=== PATIENT | female | born 1955 | race Hispanic/Latino ===

== ENCOUNTER 2018-03-10 21:29 | Inpatient (IN) | payer OTHER ==
[~2018-03-10] VITALS: Ht 160 cm; Wt 99.5 kg
[2018-03-10] MEDS ORDERED: ACETAMINOPHEN-CODEINE 300/30MG TAB ONE (22:34)
[2018-03-10 22:53] LABS: BASOPHILS % (AUTO) 0.4 % (0.0-5.0); EOSINOPHILS % (AUTO) 0.4 % (0.0-8.0); HEMATOCRIT 40.4 % (36-48); LYMPHOCYTES % (AUTO) 11.9 % (21.0-51.0); MEAN CORPUSCULAR HEMOGLOBIN 30.1 pg (27.0-33.0); MEAN CORPUSCULAR HGB CONC 34.6 g/dL (32.0-36.0); MONOCYTES % (AUTO) 8.4 % (3.0-13.0); NEUTROPHILS % (AUTO) 78.9 % (40.0-77.0); PLATELET COUNT (AUTO) 330 K/uL (130-400); RED BLOOD CELL COUNT(AUTO) 4.65 MIL/uL (4.00-5.50); RED CELL DISTRIBUTION WIDTH 14.6 % (11.0-15.5); WHITE BLOOD COUNT (AUTO) 10.7 K/uL (4.8-10.8)
[2018-03-10 23:08] LABS: CREATININE 0.7 mg/dL (0.5-1.5); POTASSIUM 3.6 mmol/L (3.5-5.1)
[2018-03-10 23:12] LABS: ALBUMIN 3.6 g/dL (3.5-5.0); BILIRUBIN,TOTAL 0.3 mg/dL (0.2-1.0); TOTAL PROTEIN, SERUM 7.5 g/dL (6.0-8.3)
[2018-03-10 23:29] LABS: APPEARANCE,URINE Turbid (CLEAR); BILIRUBIN,URINE Negative (NEGATIVE); COLOR,URINE Yellow (YELLOW); GLUCOSE, URINE (UA) Negative (NEGATIVE); KETONES,URINE Negative (NEGATIVE); LEUKOCYTE ESTERASE ,URINE Moderate (NEGATIVE); NITRATE,URINE Negative (NEGATIVE); OCCULT BLOOD,URINE Negative (NEGATIVE); PH,URINE 7.5 (5.0-8.0); PROTEIN,URINE Negative (NEGATIVE)
[2018-03-10 23:40] LABS: AMORPHOUS SEDIMENT,UR Many /LPF (None Seen); BACTERIA,URINE Few /HPF (None Seen); MUCUS,URINE Moderate LPF (None Seen); RBC,URINE None Seen /HPF (0-1); SQUAMOUS EPITHELIAL CELL,UR Few /HPF (0-2)
[2018-03-11] VITALS (7 sets, daily range): BP systolic 127–183; BP diastolic 65–86
[2018-03-11] MEDS ORDERED: SODIUM CHLORIDE 0.9% 1000ML 1,000 ML IV SCH (01:32)
[2018-03-11] MEDS ORDERED: ONDANSETRON HCL 4 MG/2 ML VIAL IV PRN (01:45)
[2018-03-11] MEDS ORDERED: ACETAMINOPHEN 325 MG TAB PO PRN (01:45)
[2018-03-11] MEDS ORDERED: DEXTROSE 50%-WATER 50 ML DISP.SYRIN IV PRN (01:45)
[2018-03-11] MEDS ORDERED: GLUCAGON 1MG KIT 1 MG ML IM PRN (01:45)
[2018-03-11] MEDS ORDERED: LEVOFLOXACIN 500 MG/D5W 100 ML 100 ML ONE (03:44)
[2018-03-11] MEDS ORDERED: SODIUM CHLORIDE 0.9% 1000ML 1,000 ML IV ONE (03:44)
[2018-03-11] MEDS ORDERED: HYDROCODONE/ACETAMINOPHEN 5/325 MG TAB ONE (04:48)
[2018-03-11] MEDS ORDERED: DIAZ2TAB3 PO (05:26)
[2018-03-11] MEDS ORDERED: ATOR10 PO (05:26)
[2018-03-11] MEDS ORDERED: AMLO5TAB7 PO (05:26)
[2018-03-11] MEDS ORDERED: LOSA50TA25 PO (05:26)
[2018-03-11] MEDS ORDERED: ATEN100T PO (05:26)
[2018-03-11] MEDS ORDERED: CLON0.3T PO (05:26)
[2018-03-11] MEDS ORDERED: HYDR25TA PO (05:26)
[2018-03-11] MEDS ORDERED: diclofenac gel TP (05:26)
[2018-03-11] MEDS ORDERED: INSU100I21 SQ ×2 (05:26→12:35)
[2018-03-11] MEDS ORDERED: INSU100I3 SQ (05:26)
[2018-03-11] MEDS ORDERED: ASPI-555 PO (05:26)
[2018-03-11] MEDS ORDERED: HYDR-4154 PO (05:26)
[2018-03-11] MEDS ORDERED: GLYB-228 PO (05:26)
[2018-03-11 06:54] LABS: BASOPHILS % (AUTO) 0.3 % (0.0-5.0); EOSINOPHILS % (AUTO) 0.3 % (0.0-8.0); HEMATOCRIT 40.4 % (36-48); LYMPHOCYTES % (AUTO) 12.2 % (21.0-51.0); MEAN CORPUSCULAR HEMOGLOBIN 28.4 pg (27.0-33.0); MEAN CORPUSCULAR VOLUME 86.1 fL (79-99); MONOCYTES % (AUTO) 9.6 % (3.0-13.0); NEUTROPHILS % (AUTO) 77.6 % (40.0-77.0); PLATELET COUNT (AUTO) 313 K/uL (130-400); RED CELL DISTRIBUTION WIDTH 14.9 % (11.0-15.5); WHITE BLOOD COUNT (AUTO) 11.4 K/uL (4.8-10.8)
[2018-03-11 07:00] LABS: INR 0.96 (0.85-1.15); PARTIAL THROMBOPLASTIN TIME 29.1 SEC (26.3-35.5); PROTHROMBIN TIME 10.1 SEC (9.6-11.6)
[2018-03-11 07:01] LABS: HEMOGLOBIN A1C 7.1 % (4.0-6.0)
[2018-03-11 07:03] LABS: ALBUMIN 3.6 g/dL (3.5-5.0); BILIRUBIN,TOTAL 0.4 mg/dL (0.2-1.0); CREATININE 0.7 mg/dL (0.5-1.5); POTASSIUM 3.9 mmol/L (3.5-5.1); TOTAL PROTEIN, SERUM 7.4 g/dL (6.0-8.3)
[2018-03-11] MEDS: INSULIN HUMULIN R 100 UNIT/ML 3ML SQ SCH ×4 (07:30→21:00)
[2018-03-11] MEDS ORDERED: INSULIN LISPRO 100 UNIT/ML 3ML SQ PRN (09:00)
[2018-03-11] MEDS ORDERED: HYDROCHLOROTHIAZIDE 25 MG TABLET PO PRN (09:00)
[2018-03-11] MEDS ORDERED: AMLODIPINE BESYLATE 5 MG TAB PO SCH (09:00)
[2018-03-11] MEDS: ENOXAPARIN SODIUM 40 MG/0.4 ML SYRINGE SQ SCH (10:03)
[2018-03-11] MEDS: DIAZEPAM 2 MG TAB PO SCH ×2 (10:04→21:33)
[2018-03-11] MEDS: ASPIRIN 81MG TAB.CHEW PO SCH (10:05)
[2018-03-11] MEDS: PANTOPRAZOLE SODIUM 40 MG TABLET.DR PO SCH (10:05)
[2018-03-11] MEDS: ATENOLOL 50 MG TABLET PO SCH (10:06)
[2018-03-11] MEDS: GLYBURIDE/METFORMIN HCL 5/500MG TABLET PO SCH ×2 (10:07→21:35)
[2018-03-11] MEDS: LOSARTAN 50 MG TABLET PO SCH (10:07)
[2018-03-11] MEDS: CLONIDINE HCL 0.3 MG TABLET PO SCH ×3 (10:07→21:33)
[2018-03-11] MEDS: HYDRALAZINE HCL 25 MG TABLET PO PRN (11:00)
[2018-03-11] MEDS: HYDROCODONE/ACETAMINOPHEN 5/325 MG TAB PO PRN ×2 (11:03→20:14)
[2018-03-11] MEDS ORDERED: INSULIN GLARGINE 100 UNITS/ML 10 ML VIAL SQ SCH (12:00)
[2018-03-11] MEDS: APPL TP SCH ×2 (12:37→21:00)
[2018-03-11] MEDS: LACTULOSE 20 GM/30 ML UDCUP PO PRN (20:14)
[2018-03-11] MEDS: LEVOFLOXACIN 500 MG/D5W 100 ML 100 ML IV SCH (21:32)
[2018-03-11] MEDS: ATORVASTATIN CALCIUM 10 MG TABLET PO SCH (21:33)
[2018-03-12 03:00] VITALS: BP 150/60
[2018-03-12 05:37] LABS: HEMATOCRIT 40.9 % (36-48); MEAN CORPUSCULAR HEMOGLOBIN 29.7 pg (27.0-33.0); MEAN CORPUSCULAR VOLUME 87.4 fL (79-99); PLATELET COUNT (AUTO) 331 K/uL (130-400); RED BLOOD CELL COUNT(AUTO) 4.68 MIL/uL (4.00-5.50); RED CELL DISTRIBUTION WIDTH 14.5 % (11.0-15.5); WHITE BLOOD COUNT (AUTO) 10.8 K/uL (4.8-10.8)
[2018-03-12] MEDS: HYDROCODONE/ACETAMINOPHEN 5/325 MG TAB PO PRN ×3 (05:44→19:28)
[2018-03-12] MEDS: INSULIN HUMULIN R 100 UNIT/ML 3ML SQ SCH ×4 (05:45→20:00)
[2018-03-12 05:50] LABS: ALBUMIN 3.5 g/dL (3.5-5.0); BILIRUBIN,TOTAL 0.5 mg/dL (0.2-1.0); CREATININE 0.9 mg/dL (0.5-1.5); POTASSIUM 3.7 mmol/L (3.5-5.1); TOTAL PROTEIN, SERUM 7.5 g/dL (6.0-8.3)
[2018-03-12 08:27] VITALS: BP 165/75
[2018-03-12] MEDS: APPL TP SCH ×3 (09:00→21:00)
[2018-03-12] MEDS: DIAZEPAM 2 MG TAB PO SCH ×2 (09:00→20:26)
[2018-03-12] MEDS: ENOXAPARIN SODIUM 40 MG/0.4 ML SYRINGE SQ SCH (10:43)
[2018-03-12] MEDS: GLYBURIDE/METFORMIN HCL 5/500MG TABLET PO SCH ×2 (10:43→20:24)
[2018-03-12] MEDS: ATENOLOL 50 MG TABLET PO SCH (10:44)
[2018-03-12] MEDS: ASPIRIN 81MG TAB.CHEW PO SCH (10:45)
[2018-03-12] MEDS: PANTOPRAZOLE SODIUM 40 MG TABLET.DR PO SCH (10:45)
[2018-03-12] MEDS: LOSARTAN 50 MG TABLET PO SCH (10:45)
[2018-03-12] MEDS: CLONIDINE HCL 0.3 MG TABLET PO SCH ×2 (10:50→19:24)
[2018-03-12 12:00] VITALS: BP 161/75
[2018-03-12] MEDS ORDERED: INSULIN GLARGINE 100 UNITS/ML 10 ML VIAL SQ SCH (12:00)
[2018-03-12 16:00] VITALS: BP 160/71
[2018-03-12 19:00] VITALS: BP 171/78
[2018-03-12] MEDS: LEVOFLOXACIN 500 MG/D5W 100 ML 100 ML IV SCH (20:23)
[2018-03-12] MEDS: ATORVASTATIN CALCIUM 10 MG TABLET PO SCH (20:24)
[2018-03-12 23:00] VITALS: BP 163/76
[2018-03-13] MEDS: HYDROCODONE/ACETAMINOPHEN 5/325 MG TAB PO PRN ×3 (01:34→19:42)
[2018-03-13 03:00] VITALS: BP 176/67
[2018-03-13] MEDS: HYDRALAZINE HCL 25 MG TABLET PO PRN (04:21)
[2018-03-13] MEDS: INSULIN HUMULIN R 100 UNIT/ML 3ML SQ SCH ×4 (05:33→20:45)
[2018-03-13 06:02] LABS: HEMATOCRIT 41.1 % (36-48); MEAN CORPUSCULAR HEMOGLOBIN 29.5 pg (27.0-33.0); MEAN CORPUSCULAR HGB CONC 34.2 g/dL (32.0-36.0); MEAN CORPUSCULAR VOLUME 86.3 fL (79-99); PLATELET COUNT (AUTO) 365 K/uL (130-400); RED BLOOD CELL COUNT(AUTO) 4.76 MIL/uL (4.00-5.50); RED CELL DISTRIBUTION WIDTH 14.3 % (11.0-15.5); WHITE BLOOD COUNT (AUTO) 12.3 K/uL (4.8-10.8)
[2018-03-13 06:21] LABS: ALBUMIN 3.6 g/dL (3.5-5.0); BILIRUBIN,TOTAL 0.4 mg/dL (0.2-1.0); CREATININE 0.8 mg/dL (0.5-1.5); POTASSIUM 3.9 mmol/L (3.5-5.1); TOTAL PROTEIN, SERUM 7.5 g/dL (6.0-8.3)
[2018-03-13 07:00] VITALS: BP 178/61
[2018-03-13] MEDS: DIAZEPAM 2 MG TAB PO SCH ×2 (08:28→20:47)
[2018-03-13] MEDS: GLYBURIDE/METFORMIN HCL 5/500MG TABLET PO SCH ×3 (08:28→20:48)
[2018-03-13] MEDS: PANTOPRAZOLE SODIUM 40 MG TABLET.DR PO SCH (08:28)
[2018-03-13] MEDS: AMLODIPINE BESYLATE 5 MG TAB PO SCH (08:28)
[2018-03-13] MEDS: ASPIRIN 81MG TAB.CHEW PO SCH (08:29)
[2018-03-13] MEDS: ATENOLOL 50 MG TABLET PO SCH (08:29)
[2018-03-13] MEDS: LOSARTAN 50 MG TABLET PO SCH ×2 (08:29→11:42)
[2018-03-13] MEDS: CLONIDINE HCL 0.3 MG TABLET PO SCH ×4 (08:30→20:48)
[2018-03-13] MEDS: ENOXAPARIN SODIUM 40 MG/0.4 ML SYRINGE SQ SCH (08:31)
[2018-03-13] MEDS: APPL TP SCH ×3 (08:48→20:51)
[2018-03-13 11:00] VITALS: BP 163/55
[2018-03-13] MEDS: INSULIN GLARGINE 100 UNITS/ML 10 ML VIAL SQ SCH (11:49)
[2018-03-13] MEDS ORDERED: CEFTRIAXONE SODIUM 1 GM IV SCH (12:00)
[2018-03-13] MEDS: CEFTRIAXONE SODIUM 1 GM IV SCH (13:13)
[2018-03-13 16:00] VITALS: BP 127/58
[2018-03-13 19:00] VITALS: BP 147/71
[2018-03-13] MEDS: ATORVASTATIN CALCIUM 10 MG TABLET PO SCH (20:47)
[2018-03-13 23:00] VITALS: BP 122/57
[2018-03-14] MEDS: HYDROCODONE/ACETAMINOPHEN 5/325 MG TAB PO PRN ×6 (02:51→22:23)
[2018-03-14 03:00] VITALS: BP 141/72
[2018-03-14 05:29] LABS: HEMATOCRIT 37.6 % (36-48); MEAN CORPUSCULAR HEMOGLOBIN 28.9 pg (27.0-33.0); MEAN CORPUSCULAR HGB CONC 32.9 g/dL (32.0-36.0); MEAN CORPUSCULAR VOLUME 87.8 fL (79-99); PLATELET COUNT (AUTO) 273 K/uL (130-400); RED BLOOD CELL COUNT(AUTO) 4.28 MIL/uL (4.00-5.50); RED CELL DISTRIBUTION WIDTH 14.6 % (11.0-15.5); WHITE BLOOD COUNT (AUTO) 9.8 K/uL (4.8-10.8)
[2018-03-14 05:36] LABS: CREATININE 0.8 mg/dL (0.5-1.5); POTASSIUM 3.8 mmol/L (3.5-5.1)
[2018-03-14] MEDS: INSULIN HUMULIN R 100 UNIT/ML 3ML SQ SCH ×4 (06:40→20:10)
[2018-03-14 07:00] VITALS: BP 161/76
[2018-03-14] MEDS: PANTOPRAZOLE SODIUM 40 MG TABLET.DR PO SCH (08:49)
[2018-03-14] MEDS: ATENOLOL 50 MG TABLET PO SCH (08:50)
[2018-03-14] MEDS: LOSARTAN 50 MG TABLET PO SCH (08:51)
[2018-03-14] MEDS: AMLODIPINE BESYLATE 5 MG TAB PO SCH (08:51)
[2018-03-14] MEDS: ASPIRIN 81MG TAB.CHEW PO SCH (08:51)
[2018-03-14] MEDS: DIAZEPAM 2 MG TAB PO SCH ×2 (08:51→20:13)
[2018-03-14] MEDS: CLONIDINE HCL 0.3 MG TABLET PO SCH ×3 (08:52→20:14)
[2018-03-14] MEDS: GLYBURIDE/METFORMIN HCL 5/500MG TABLET PO SCH ×2 (08:52→20:14)
[2018-03-14] MEDS: ENOXAPARIN SODIUM 40 MG/0.4 ML SYRINGE SQ SCH (08:53)
[2018-03-14] MEDS: APPL TP SCH ×3 (08:53→20:15)
[2018-03-14 11:00] VITALS: BP 127/61
[2018-03-14] MEDS: CEFTRIAXONE SODIUM 1 GM IV SCH (12:36)
[2018-03-14] MEDS: INSULIN GLARGINE 100 UNITS/ML 10 ML VIAL SQ SCH (12:40)
[2018-03-14 16:00] VITALS: BP 156/52
[2018-03-14 19:00] VITALS: BP 141/74
[2018-03-14] MEDS: ATORVASTATIN CALCIUM 10 MG TABLET PO SCH (20:13)
[2018-03-15] VITALS: BP 136/64
[2018-03-15 04:00] VITALS: BP 137/67
[2018-03-15] MEDS: HYDROCODONE/ACETAMINOPHEN 5/325 MG TAB PO PRN ×4 (04:22→22:29)
[2018-03-15 04:44] LABS: HEMATOCRIT 37.5 % (36-48); MEAN CORPUSCULAR HEMOGLOBIN 29.5 pg (27.0-33.0); MEAN CORPUSCULAR HGB CONC 33.8 g/dL (32.0-36.0); MEAN CORPUSCULAR VOLUME 87.2 fL (79-99); PLATELET COUNT (AUTO) 319 K/uL (130-400); RED CELL DISTRIBUTION WIDTH 14.5 % (11.0-15.5); WHITE BLOOD COUNT (AUTO) 14.1 K/uL (4.8-10.8)
[2018-03-15 05:05] LABS: CREATININE 0.8 mg/dL (0.5-1.5); POTASSIUM 3.8 mmol/L (3.5-5.1)
[2018-03-15 07:00] VITALS: BP 148/66
[2018-03-15] MEDS: INSULIN HUMULIN R 100 UNIT/ML 3ML SQ SCH ×4 (07:30→20:24)
[2018-03-15] MEDS: APPL TP SCH ×3 (09:00→20:25)
[2018-03-15] MEDS: LOSARTAN 50 MG TABLET PO SCH (09:10)
[2018-03-15] MEDS: GLYBURIDE/METFORMIN HCL 5/500MG TABLET PO SCH ×2 (09:11→20:23)
[2018-03-15] MEDS: PANTOPRAZOLE SODIUM 40 MG TABLET.DR PO SCH (09:12)
[2018-03-15] MEDS: ASPIRIN 81MG TAB.CHEW PO SCH (09:12)
[2018-03-15] MEDS: ATENOLOL 50 MG TABLET PO SCH (09:12)
[2018-03-15] MEDS: DIAZEPAM 2 MG TAB PO SCH ×2 (09:12→20:24)
[2018-03-15] MEDS: CLONIDINE HCL 0.3 MG TABLET PO SCH ×3 (09:12→20:22)
[2018-03-15] MEDS: AMLODIPINE BESYLATE 5 MG TAB PO SCH (09:13)
[2018-03-15] MEDS: ENOXAPARIN SODIUM 40 MG/0.4 ML SYRINGE SQ SCH (09:14)
[2018-03-15] MEDS: LACTULOSE 20 GM/30 ML UDCUP PO PRN (09:20)
[2018-03-15 11:00] VITALS: BP 149/74
[2018-03-15] MEDS: CEFTRIAXONE SODIUM 1 GM IV SCH (11:05)
[2018-03-15] MEDS: INSULIN GLARGINE 100 UNITS/ML 10 ML VIAL SQ SCH (14:09)
[2018-03-15 16:00] VITALS: BP 150/72
[2018-03-15 20:00] VITALS: BP 138/64
[2018-03-15] MEDS: ATORVASTATIN CALCIUM 10 MG TABLET PO SCH (20:22)
[2018-03-16] VITALS (13 sets, daily range): BP systolic 109–172; BP diastolic 59–93
[2018-03-16] MEDS: HYDROCODONE/ACETAMINOPHEN 5/325 MG TAB PO PRN ×3 (04:46→20:58)
[2018-03-16] MEDS: INSULIN HUMULIN R 100 UNIT/ML 3ML SQ SCH ×4 (06:06→20:55)
[2018-03-16 06:14] LABS: HEMATOCRIT 38.1 % (36-48); MEAN CORPUSCULAR HEMOGLOBIN 29.2 pg (27.0-33.0); MEAN CORPUSCULAR HGB CONC 33.4 g/dL (32.0-36.0); MEAN CORPUSCULAR VOLUME 87.5 fL (79-99); PLATELET COUNT (AUTO) 314 K/uL (130-400); RED BLOOD CELL COUNT(AUTO) 4.35 MIL/uL (4.00-5.50); RED CELL DISTRIBUTION WIDTH 14.7 % (11.0-15.5); WHITE BLOOD COUNT (AUTO) 13.8 K/uL (4.8-10.8)
[2018-03-16 06:24] LABS: CREATININE 0.8 mg/dL (0.5-1.5); POTASSIUM 3.3 mmol/L (3.5-5.1)
[2018-03-16 06:29] LABS: INR 0.94 (0.85-1.15); PARTIAL THROMBOPLASTIN TIME 28.5 SEC (26.3-35.5); PROTHROMBIN TIME 9.9 SEC (9.6-11.6)
[2018-03-16] MEDS: APPL TP SCH ×3 (09:00→20:59)
[2018-03-16] MEDS: ASPIRIN 81MG TAB.CHEW PO SCH (09:00)
[2018-03-16] MEDS: ENOXAPARIN SODIUM 40 MG/0.4 ML SYRINGE SQ SCH (09:00)
[2018-03-16] MEDS: PANTOPRAZOLE SODIUM 40 MG TABLET.DR PO SCH (09:37)
[2018-03-16] MEDS: ATENOLOL 50 MG TABLET PO SCH (09:38)
[2018-03-16] MEDS: LOSARTAN 50 MG TABLET PO SCH (09:38)
[2018-03-16] MEDS: AMLODIPINE BESYLATE 5 MG TAB PO SCH (09:39)
[2018-03-16] MEDS: CLONIDINE HCL 0.3 MG TABLET PO SCH ×3 (09:40→20:54)
[2018-03-16] MEDS: GLYBURIDE/METFORMIN HCL 5/500MG TABLET PO SCH ×2 (09:40→20:55)
[2018-03-16] MEDS: DIAZEPAM 2 MG TAB PO SCH ×2 (09:50→20:54)
[2018-03-16] MEDS: INSULIN GLARGINE 100 UNITS/ML 10 ML VIAL SQ SCH (12:00)
[2018-03-16] MEDS: CEFTRIAXONE SODIUM 1 GM IV SCH (13:56)
[2018-03-16] MEDS ORDERED: LIDOCAINE 1%-EPI 1:100,000 20 ML VIAL IJ ONE (15:55)
[2018-03-16] MEDS ORDERED: LIDOCAINE HCL 1% 20 ML VIAL ONE (15:55)
[2018-03-16] MEDS: ATORVASTATIN CALCIUM 10 MG TABLET PO SCH (20:54)
[2018-03-17 00:25] VITALS: BP 140/67
[2018-03-17 04:00] VITALS: BP 142/76
[2018-03-17] MEDS: HYDROCODONE/ACETAMINOPHEN 5/325 MG TAB PO PRN ×2 (04:25→09:19)
[2018-03-17 05:12] LABS: HEMATOCRIT 35.8 % (36-48); MEAN CORPUSCULAR HEMOGLOBIN 29.9 pg (27.0-33.0); PLATELET COUNT (AUTO) 338 K/uL (130-400); RED BLOOD CELL COUNT(AUTO) 4.07 MIL/uL (4.00-5.50); RED CELL DISTRIBUTION WIDTH 14.9 % (11.0-15.5); WHITE BLOOD COUNT (AUTO) 11.8 K/uL (4.8-10.8)
[2018-03-17 05:20] LABS: CREATININE 0.7 mg/dL (0.5-1.5); POTASSIUM 3.5 mmol/L (3.5-5.1)
[2018-03-17] MEDS: INSULIN HUMULIN R 100 UNIT/ML 3ML SQ SCH ×2 (06:04→11:30)
[2018-03-17 08:00] VITALS: BP 143/62
[2018-03-17] MEDS: APPL TP SCH (09:00)
[2018-03-17] MEDS: ASPIRIN 81MG TAB.CHEW PO SCH (09:13)
[2018-03-17] MEDS: ATENOLOL 50 MG TABLET PO SCH (09:14)
[2018-03-17] MEDS: AMLODIPINE BESYLATE 5 MG TAB PO SCH (09:14)
[2018-03-17] MEDS: PANTOPRAZOLE SODIUM 40 MG TABLET.DR PO SCH (09:14)
[2018-03-17 09:15] VITALS: BP 143/62
[2018-03-17] MEDS: CLONIDINE HCL 0.3 MG TABLET PO SCH (09:15)
[2018-03-17] MEDS: LOSARTAN 50 MG TABLET PO SCH (09:15)
[2018-03-17] MEDS: GLYBURIDE/METFORMIN HCL 5/500MG TABLET PO SCH (09:16)
[2018-03-17] MEDS: ENOXAPARIN SODIUM 40 MG/0.4 ML SYRINGE SQ SCH (09:17)
[2018-03-17] MEDS: DIAZEPAM 2 MG TAB PO SCH (09:24)
[2018-03-17] MEDS ORDERED: CEFD300C3 PO (11:10)
[2018-03-17] MEDS ORDERED: ATEN100T PO (11:10)
[2018-03-17] MEDS ORDERED: LOSA50TA25 PO (11:10)
[2018-03-17] MEDS ORDERED: AMLO5TAB7 PO (11:10)
[2018-03-17] MEDS ORDERED: HYDR-4154 PO (11:13)
[2018-03-17] MEDS ORDERED: TYL3 PO (11:13)
[2018-03-17] MEDS: CEFTRIAXONE SODIUM 1 GM IV SCH (12:20)
[2018-03-17] MEDS: INSULIN GLARGINE 100 UNITS/ML 10 ML VIAL SQ SCH (12:28)
== END 2018-03-17 15:55 | disposition home or self-care (01) | DRG 543 ==
LOC: EDH 21:29 → EDHIP 21:30 → 3AH 03-11 04:02
PROVIDERS: ADMIT Hospitalist; ATTEND Hospitalist
PROC: 0HBT3ZX Excision of Right Breast, Percutaneous Approach, Diagnostic (ICD-10-PCS; principal; 2018-03-16)
DX: C79.51 Secondary malignant neoplasm of bone (principal); N39.0 Urinary tract infection, site not specified; Z68.41 Body mass index [BMI] 40.0-44.9, adult; C78.00 Secondary malignant neoplasm of unspecified lung; N63.10 Unspecified lump in the right breast, unspecified quadrant; R91.8 Other nonspecific abnormal finding of lung field; K80.20 Calculus of gallbladder without cholecystitis without obstruction; E66.01 Morbid (severe) obesity due to excess calories; E11.65 Type 2 diabetes mellitus with hyperglycemia; E78.00 Pure hypercholesterolemia, unspecified; E78.5 Hyperlipidemia, unspecified; I10 Essential (primary) hypertension; M19.90 Unspecified osteoarthritis, unspecified site; Z83.3 Family history of diabetes mellitus; Z82.49 Family history of ischemic heart disease and other diseases of the circulatory system
CPT/HCPCS: 19083; 36415; 73502; 74176; 80048; 80053; 81001; 82550; 82948; 83036; 83690; 85025; 85027; 85610; 85730; 87088; 88305; 93005; 97039; A4218; J0696; J1650; J1815; J1956; J3490; J7030

== ENCOUNTER 2018-04-07 20:02 | Emergency (ER) | payer MEDICAID, OTHER ==
[~2018-04-07 20:02] MED LIST: AMLO5TAB7 PO; ASPI-555 PO; ATEN100T PO; ATOR10 PO; CEFD300C3 PO; CLON0.3T PO; DIAZ2TAB3 PO; GLYB-228 PO; HYDR-4154 PO; HYDR25TA PO; INSU100I21 SQ; INSU100I3 SQ; LOSA50TA25 PO; TYL3 PO; diclofenac gel TP
[2018-04-07] MEDS ORDERED: ONDANSETRON HCL 4 MG/2 ML VIAL ONE (20:52)
[2018-04-07] MEDS ORDERED: MORPHINE SULFATE 4 MG/1ML SYG ONE (20:52)
[2018-04-07 21:02] LABS: BASOPHILS % (AUTO) 0.5 % (0.0-5.0); EOSINOPHILS % (AUTO) 1.2 % (0.0-8.0); HEMATOCRIT 42.1 % (36-48); LYMPHOCYTES % (AUTO) 13.5 % (21.0-51.0); MEAN CORPUSCULAR HEMOGLOBIN 29.3 pg (27.0-33.0); MEAN CORPUSCULAR HGB CONC 33.4 g/dL (32.0-36.0); MEAN CORPUSCULAR VOLUME 87.7 fL (79-99); MONOCYTES % (AUTO) 6.2 % (3.0-13.0); NEUTROPHILS % (AUTO) 78.6 % (40.0-77.0); PLATELET COUNT (AUTO) 360 K/uL (130-400); RED CELL DISTRIBUTION WIDTH 14.2 % (11.0-15.5); WHITE BLOOD COUNT (AUTO) 11.7 K/uL (4.8-10.8)
[2018-04-07 21:16] LABS: APPEARANCE,URINE SL CLOUDY (CLEAR); BILIRUBIN,URINE NEGATIVE (NEGATIVE); COLOR,URINE YELLOW (YELLOW); GLUCOSE, URINE (UA) NEGATIVE (NEGATIVE); KETONES,URINE NEGATIVE (NEGATIVE); LEUKOCYTE ESTERASE ,URINE SMALL (NEGATIVE); NITRATE,URINE NEGATIVE (NEGATIVE); OCCULT BLOOD,URINE NEGATIVE (NEGATIVE); PROTEIN,URINE TRACE (NEGATIVE); UROBILINOGEN,URINE 0.2 mg/dL (0.2-1.0)
[2018-04-07 21:16] LABS: CREATININE 0.7 mg/dL (0.5-1.5); POTASSIUM 3.7 mmol/L (3.5-5.1)
[2018-04-07 21:19] LABS: BACTERIA,URINE Few /HPF (None Seen); CALCIUM OXALATE CRYSTALS,UR Few /LPF (None Seen); MUCUS,URINE Moderate LPF (None Seen); RBC,URINE 0-1 /HPF (0-1); SQUAMOUS EPITHELIAL CELL,UR Moderate /HPF (0-2)
[2018-04-07 21:21] LABS: ALBUMIN 3.7 g/dL (3.5-5.0); BILIRUBIN,TOTAL 0.3 mg/dL (0.2-1.0); TOTAL PROTEIN, SERUM 7.8 g/dL (6.0-8.3)
== END 2018-04-07 22:18 | disposition home or self-care (01) ==
LOC: EDH 20:02
DX: M79.651 Pain in right thigh (principal); C50.919 Malignant neoplasm of unspecified site of unspecified female breast; C79.51 Secondary malignant neoplasm of bone; E11.9 Type 2 diabetes mellitus without complications; E78.5 Hyperlipidemia, unspecified; I10 Essential (primary) hypertension; E07.9 Disorder of thyroid, unspecified
CPT/HCPCS: 36415; 72131; 80053; 73700; 81001; 85025; 96374; 96375; 99284; J2270; J2405

== ENCOUNTER 2018-07-29 19:59 | Emergency (ER) | payer MEDICAID ==
[~2018-07-29 19:59] MED LIST changes: -AMLO5TAB7 PO; +AMLO5TAB9 PO; -LOSA50TA25 PO; +LOSA50TA64 PO
[2018-07-29] MEDS ORDERED: ONDANSETRON HCL 4 MG/2 ML VIAL ONE (20:34)
[2018-07-29] MEDS ORDERED: MORPHINE SULFATE 4 MG/1ML SYG ONE (20:34)
[2018-07-29] MEDS ORDERED: KETOROLAC TROMETHAMINE 30MG/ML ONE (20:34)
[2018-07-29 21:20] LABS: CREATININE 0.7 mg/dL (0.5-1.5); POTASSIUM 3.1 mmol/L (3.5-5.1)
[2018-07-29 21:23] LABS: APPEARANCE,URINE Clear (CLEAR); BILIRUBIN,URINE Negative (NEGATIVE); COLOR,URINE Yellow (YELLOW); GLUCOSE, URINE (UA) Negative (NEGATIVE); KETONES,URINE Negative (NEGATIVE); LEUKOCYTE ESTERASE ,URINE Negative (NEGATIVE); NITRATE,URINE Negative (NEGATIVE); OCCULT BLOOD,URINE Negative (NEGATIVE); PH,URINE 6.5 (5.0-8.0); PROTEIN,URINE Negative (NEGATIVE); UROBILINOGEN,URINE 0.2 mg/dL (0.2-1.0)
[2018-07-29 21:25] LABS: ALBUMIN 3.3 g/dL (3.5-5.0); BILIRUBIN,TOTAL 0.5 mg/dL (0.2-1.0); TOTAL PROTEIN, SERUM 7.1 g/dL (6.0-8.3)
[2018-07-29 21:28] LABS: BASOPHILS % (AUTO) 0.4 % (0.0-5.0); HEMATOCRIT 35.4 % (36-48); LYMPHOCYTES % (AUTO) 6.9 % (21.0-51.0); MEAN CORPUSCULAR HEMOGLOBIN 29.4 pg (27.0-33.0); MEAN CORPUSCULAR HGB CONC 33.6 g/dL (32.0-36.0); MEAN CORPUSCULAR VOLUME 87.5 fL (79-99); MONOCYTES % (AUTO) 14.4 % (3.0-13.0); NEUTROPHILS % (AUTO) 78.3 % (40.0-77.0); PLATELET COUNT (AUTO) 484 K/uL (130-400); RED BLOOD CELL COUNT(AUTO) 4.05 MIL/uL (4.00-5.50); RED CELL DISTRIBUTION WIDTH 16.8 % (11.0-15.5); WHITE BLOOD COUNT (AUTO) 13.9 K/uL (4.8-10.8)
== END 2018-07-29 22:30 | disposition home or self-care (01) ==
LOC: EDH 19:59
DX: R51 Headache (principal); I10 Essential (primary) hypertension; E78.5 Hyperlipidemia, unspecified; E11.9 Type 2 diabetes mellitus without complications; E07.9 Disorder of thyroid, unspecified; M19.90 Unspecified osteoarthritis, unspecified site; Z85.3 Personal history of malignant neoplasm of breast; Z98.890 Other specified postprocedural states
CPT/HCPCS: 36415; 70450; 72125; 80053; 81003; 85025; 96374; 96375; 99284; J1885; J2270; J2405

== ENCOUNTER 2020-08-14 08:28 | Inpatient (IN) | payer MEDICARE ==
[~2020-08-14] VITALS: Ht 160 cm; Wt 89.6 kg
[~2020-08-14 08:28] MED LIST changes: +AMLO-257 PO; -AMLO5TAB9 PO; -ASPI-555 PO; +ASPI-556 PO; -GLYB-228 PO; +GLYB1TAB32 PO
[2020-08-14 09:15] LABS: BASOPHILS % (AUTO) 0.6 % (0.0-5.0); EOSINOPHILS % (AUTO) 0.5 % (0.0-8.0); HEMATOCRIT 31.2 % (36-48); LYMPHOCYTES % (AUTO) 13.1 % (21.0-51.0); MEAN CORPUSCULAR HGB CONC 36.2 g/dL (32.0-36.0); MEAN CORPUSCULAR VOLUME 99.4 fL (79-99); NEUTROPHILS % (AUTO) 78.3 % (40.0-77.0); PLATELET COUNT (AUTO) 175 K/uL (130-400); RED BLOOD CELL COUNT(AUTO) 3.14 MIL/uL (4.00-5.50); RED CELL DISTRIBUTION WIDTH 15.4 % (11.0-15.5); WHITE BLOOD COUNT (AUTO) 6.2 K/uL (4.8-10.8)
[2020-08-14 09:21] LABS: CREATININE 1.3 mg/dL (0.5-1.5); POTASSIUM 3.3 mmol/L (3.5-5.1)
[2020-08-14 09:25] LABS: ALBUMIN 3.5 g/dL (3.5-5.0); BILIRUBIN,TOTAL 0.8 mg/dL (0.2-1.0); TOTAL PROTEIN, SERUM 7.8 g/dL (6.0-8.3)
[2020-08-14 10:05] LABS: APPEARANCE,URINE CLEAR (CLEAR); BILIRUBIN,URINE NEGATIVE (NEGATIVE); COLOR,URINE YELLOW (YELLOW); GLUCOSE, URINE (UA) NEGATIVE (NEGATIVE); KETONES,URINE NEGATIVE (NEGATIVE); LEUKOCYTE ESTERASE ,URINE TRACE (NEGATIVE); NITRATE,URINE NEGATIVE (NEGATIVE); OCCULT BLOOD,URINE NEGATIVE (NEGATIVE); PROTEIN,URINE NEGATIVE (NEGATIVE); UROBILINOGEN,URINE 0.2 mg/dL (0.2-1.0)
[2020-08-14 10:14] LABS: BACTERIA,URINE Rare /HPF (None Seen); RBC,URINE 0-1 /HPF (0-1); SQUAMOUS EPITHELIAL CELL,UR Rare /HPF (0-2); WBC,URINE 0-1 /HPF (0-1)
[2020-08-14] MEDS ORDERED: ZOSYN 3.375GM+NS 50ML 50 ML IV ONE ×2 (14:06→19:30)
[2020-08-14] MEDS ORDERED: MORPHINE SULFATE 2 MG/ML 1ML SYG IVP PRN (15:45)
[2020-08-14] MEDS ORDERED: INSULIN HUMULIN R 100 UNIT/ML 3ML SQ SCH (16:30)
[2020-08-14] MEDS ORDERED: POTASSIUM CHLORIDE 20MEQ/100ML 100 ML IV ONE (17:18)
[2020-08-14] MEDS ORDERED: LIDOCAINE HCL-MPF 1% 2ML VIAL ONE (17:21)
[2020-08-14] MEDS ORDERED: MAGNESIUM 2GM PREMIX 50ML 50 ML IV SCH (18:30)
[2020-08-14] MEDS ORDERED: ZOSYN 3.375GM+NS 50ML 50 ML IV SCH (21:00)
[2020-08-14] MEDS ORDERED: KETOROLAC TROMETHAMINE 15MG/ML ONE (22:28)
[2020-08-15] MEDS ORDERED: ZOSYN 3.375GM+NS 50ML 50 ML IV ONE ×2 (05:37→13:41)
[2020-08-15 06:34] LABS: BASOPHILS % (AUTO) 0.5 % (0.0-5.0); EOSINOPHILS % (AUTO) 0.5 % (0.0-8.0); HEMATOCRIT 32.3 % (36-48); LYMPHOCYTES % (AUTO) 9.3 % (21.0-51.0); MEAN CORPUSCULAR HEMOGLOBIN 35.2 pg (27.0-33.0); MEAN CORPUSCULAR HGB CONC 35.3 g/dL (32.0-36.0); MEAN CORPUSCULAR VOLUME 99.7 fL (79-99); NEUTROPHILS % (AUTO) 82.3 % (40.0-77.0); PLATELET COUNT (AUTO) 175 K/uL (130-400); RED BLOOD CELL COUNT(AUTO) 3.24 MIL/uL (4.00-5.50); RED CELL DISTRIBUTION WIDTH 15.2 % (11.0-15.5); WHITE BLOOD COUNT (AUTO) 8.1 K/uL (4.8-10.8)
[2020-08-15 06:43] LABS: HEMOGLOBIN A1C 6.5 % (4.0-6.0)
[2020-08-15 06:45] LABS: ALBUMIN 3.4 g/dL (3.5-5.0); BILIRUBIN,TOTAL 1.2 mg/dL (0.2-1.0); CREATININE 1.2 mg/dL (0.5-1.5); POTASSIUM 3.5 mmol/L (3.5-5.1); TOTAL PROTEIN, SERUM 7.8 g/dL (6.0-8.3)
[2020-08-15] MEDS ORDERED: ACETAMINOPHEN 325 MG TAB PO PRN ×2 (07:30)
[2020-08-15] MEDS ORDERED: LACTULOSE 20 GM/30 ML UDCUP PO PRN ×2 (07:30→10:00)
[2020-08-15] MEDS ORDERED: MORPHINE SULFATE 2 MG/ML 1ML SYG ONE ×2 (08:50→14:00)
[2020-08-15] MEDS ORDERED: KETOROLAC TROMETHAMINE 15MG/ML ONE (10:51)
[2020-08-15] MEDS ORDERED: MAGNESIUM 2GM PREMIX 50ML 50 ML IV ONE (14:50)
[2020-08-15 16:03] VITALS: BP 157/77
[2020-08-15] MEDS ORDERED: KETOROLAC TROMETHAMINE 15MG/ML IV PRN (16:15)
[2020-08-15] MEDS: LACTATED RINGERS 1000ML 1,000 ML IV SCH (16:18)
[2020-08-15] MEDS: KETOROLAC TROMETHAMINE 15MG/ML IV PRN (16:27)
[2020-08-15] MEDS: INSULIN HUMULIN R 100 UNIT/ML 3ML SQ SCH ×2 (16:30→20:30)
[2020-08-15] MEDS: HYDROMORPHONE 1 MG/1 ML AMP IVP PRN (18:14)
[2020-08-15] MEDS: ZOSYN 3.375GM+NS 50ML 50 ML IV SCH (20:30)
[2020-08-15] MEDS ORDERED: LACTULOSE PO PRN (20:45)
[2020-08-15] MEDS ORDERED: NON-FORMULARY MEDICATION 1 EACH (Cholecalciferol (Vitamin D3) 50,000 UNITS) PO SCH (20:45)
[2020-08-15] MEDS ORDERED: RIVA20TA PO (20:49)
[2020-08-15] MEDS ORDERED: VITAD50000 PO (20:49)
[2020-08-15] MEDS ORDERED: POTA-79 PO (20:49)
[2020-08-15] MEDS ORDERED: LACT10SO76 PO (20:49)
[2020-08-15] MEDS ORDERED: MORP-108 PO (20:49)
[2020-08-15] MEDS ORDERED: LOSA1TAB37 PO (20:49)
[2020-08-15] MEDS ORDERED: PALB125C PO (20:49)
[2020-08-15] MEDS ORDERED: LETR2.5T7 PO (20:49)
[2020-08-15 20:54] VITALS: BP 143/70
[2020-08-15] MEDS ORDERED: ATORVASTATIN CALCIUM 10 MG TABLET PO SCH (21:00)
[2020-08-16] VITALS (26 sets, daily range): BP systolic 122–179; BP diastolic 54–87
[2020-08-16] MEDS: ONDANSETRON HCL 4 MG/2 ML VIAL IV PRN ×4 (01:11→13:34)
[2020-08-16] MEDS: HYDROMORPHONE 1 MG/1 ML AMP IVP PRN ×2 (01:44→20:01)
[2020-08-16 04:19] LABS: BASOPHILS % (AUTO) 0.4 % (0.0-5.0); EOSINOPHILS % (AUTO) 0.2 % (0.0-8.0); HEMATOCRIT 31.4 % (36-48); LYMPHOCYTES % (AUTO) 4.9 % (21.0-51.0); MEAN CORPUSCULAR HEMOGLOBIN 35.7 pg (27.0-33.0); MEAN CORPUSCULAR HGB CONC 35.7 g/dL (32.0-36.0); MONOCYTES % (AUTO) 4.7 % (3.0-13.0); PLATELET COUNT (AUTO) 176 K/uL (130-400); RED BLOOD CELL COUNT(AUTO) 3.14 MIL/uL (4.00-5.50); RED CELL DISTRIBUTION WIDTH 15.3 % (11.0-15.5); WHITE BLOOD COUNT (AUTO) 11.1 K/uL (4.8-10.8)
[2020-08-16] MEDS: ZOSYN 3.375GM+NS 50ML 50 ML IV SCH ×3 (04:29→20:00)
[2020-08-16 04:32] LABS: CREATININE 1.3 mg/dL (0.5-1.5)
[2020-08-16 04:35] LABS: POTASSIUM 2.6 mmol/L (3.5-5.1)
[2020-08-16] MEDS ORDERED: SODIUM CHLORIDE 0.9% 0 ML IV ONE (04:40)
[2020-08-16] MEDS: POTASSIUM CHLORIDE 20MEQ/100ML 100 ML IV PRN ×3 (05:44→20:51)
[2020-08-16] MEDS: INSULIN HUMULIN R 100 UNIT/ML 3ML SQ SCH ×4 (07:13→20:54)
[2020-08-16] MEDS: ATORVASTATIN CALCIUM 10 MG TABLET PO SCH (08:05)
[2020-08-16] MEDS: POTASSIUM CHLORIDE 20 MEQ ERTAB PO SCH (08:06)
[2020-08-16] MEDS ORDERED: ATENOLOL 50 MG PO SCH (09:00)
[2020-08-16] MEDS ORDERED: LOSARTAN/HYDROCHLOROTHIAZIDE 50-12.5MG TABLET PO SCH (09:00)
[2020-08-16] MEDS ORDERED: POTASSIUM CHLORIDE PO SCH (09:00)
[2020-08-16] MEDS ORDERED: FAMOTIDINE/PF 20 MG/2 ML VIAL IV ONE (10:05)
[2020-08-16] MEDS ORDERED: LIDOCAINE PF 2% 5ML ABBOJECT ONE (10:07)
[2020-08-16] MEDS ORDERED: GLYCOPYRROLATE 1 MG/5 ML SYRINGE ONE (10:07)
[2020-08-16] MEDS ORDERED: PROPOFOL 10 MG/ML 20ML VIAL IV ONE (10:07)
[2020-08-16] MEDS ORDERED: ROCURONIUM 10MG/1ML SYR 10 MG/ML ML ONE (10:07)
[2020-08-16] MEDS ORDERED: NEOSTIGMINE 5MG/5ML SYR IV ONE (10:07)
[2020-08-16] MEDS ORDERED: SUCCINYLCHOLINE 200MG/10ML SYR ONE (10:07)
[2020-08-16] MEDS ORDERED: BUPIVACAINE/PF 0.25% 30ML VIAL IJ ONE (10:20)
[2020-08-16] MEDS ORDERED: LIDOCAINE 1%-EPI 1:100,000 20 ML VIAL IJ ONE (10:20)
[2020-08-16] MEDS ORDERED: PHENYLEPHRINE HCL 10 MG/ML 1ML VIAL IV ONE (10:30)
[2020-08-16] MEDS ORDERED: ONDANSETRON HCL 4 MG/2 ML VIAL ONE (11:19)
[2020-08-16] MEDS ORDERED: EPHEDRINE SULFATE 50 MG/ML AMPULE ONE (11:22)
[2020-08-16] MEDS ORDERED: METOPROLOL TARTRATE 1 MG/ML 5ML VIAL IV ONE (11:37)
[2020-08-16] MEDS: LACTATED RINGERS 1000ML 1,000 ML IV SCH ×2 (11:42→13:11)
[2020-08-16] MEDS ORDERED: MEPERIDINE-PF 25 MG/ML SYG ONE (12:22)
[2020-08-16] MEDS: ATENOLOL 50 MG TABLET PO SCH (13:10)
[2020-08-16] MEDS: LOSARTAN/HYDROCHLOROTHIAZIDE 50-12.5MG TABLET PO SCH (13:10)
[2020-08-16] MEDS: METOCLOPRAMIDE 10 MG/2 ML VIAL IVP SCH (20:00)
[2020-08-17] VITALS (7 sets, daily range): BP systolic 97–152; BP diastolic 54–64
[2020-08-17] MEDS: INSULIN HUMULIN R 100 UNIT/ML 3ML SQ SCH ×4 (05:18→20:59)
[2020-08-17 05:26] LABS: BASOPHILS % (AUTO) 0.3 % (0.0-5.0); HEMATOCRIT 28.9 % (36-48); LYMPHOCYTES % (AUTO) 8.1 % (21.0-51.0); MEAN CORPUSCULAR HGB CONC 34.6 g/dL (32.0-36.0); MONOCYTES % (AUTO) 4.6 % (3.0-13.0); NEUTROPHILS % (AUTO) 86.4 % (40.0-77.0); PLATELET COUNT (AUTO) 171 K/uL (130-400); RED BLOOD CELL COUNT(AUTO) 2.78 MIL/uL (4.00-5.50); RED CELL DISTRIBUTION WIDTH 15.2 % (11.0-15.5); WHITE BLOOD COUNT (AUTO) 7.8 K/uL (4.8-10.8)
[2020-08-17] MEDS: ZOSYN 3.375GM+NS 50ML 50 ML IV SCH ×3 (05:26→20:58)
[2020-08-17] MEDS: LACTATED RINGERS 1000ML 1,000 ML IV SCH ×2 (05:27→19:45)
[2020-08-17 05:37] LABS: CREATININE 1.4 mg/dL (0.5-1.5); POTASSIUM 3.5 mmol/L (3.5-5.1)
[2020-08-17] MEDS: POTASSIUM CHLORIDE 20MEQ/100ML 100 ML IV PRN (06:27)
[2020-08-17] MEDS: KETOROLAC TROMETHAMINE 15MG/ML IV PRN (06:40)
[2020-08-17] MEDS: LOSARTAN/HYDROCHLOROTHIAZIDE 50-12.5MG TABLET PO SCH (09:11)
[2020-08-17] MEDS: ATORVASTATIN CALCIUM 10 MG TABLET PO SCH (09:11)
[2020-08-17] MEDS: POTASSIUM CHLORIDE 20 MEQ ERTAB PO SCH (09:11)
[2020-08-17] MEDS: METOCLOPRAMIDE 10 MG/2 ML VIAL IVP SCH ×2 (09:12→20:58)
[2020-08-17] MEDS: ATENOLOL 50 MG TABLET PO SCH (09:12)
[2020-08-17] MEDS: HYDROMORPHONE 1 MG/1 ML AMP IVP PRN (20:58)
[2020-08-18 00:09] VITALS: BP 107/55
[2020-08-18 03:52] VITALS: BP 117/60
[2020-08-18] MEDS: ZOSYN 3.375GM+NS 50ML 50 ML IV SCH ×3 (05:05→20:51)
[2020-08-18] MEDS: INSULIN HUMULIN R 100 UNIT/ML 3ML SQ SCH ×4 (06:32→20:31)
[2020-08-18 08:24] VITALS: BP 110/55
[2020-08-18] MEDS: METOCLOPRAMIDE 10 MG/2 ML VIAL IVP SCH ×2 (09:14→20:51)
[2020-08-18] MEDS: HYDROMORPHONE 1 MG/1 ML AMP IVP PRN ×2 (09:14→19:29)
[2020-08-18] MEDS: POTASSIUM CHLORIDE 20 MEQ ERTAB PO SCH (09:19)
[2020-08-18] MEDS: ATORVASTATIN CALCIUM 10 MG TABLET PO SCH (09:19)
[2020-08-18] MEDS: ATENOLOL 50 MG TABLET PO SCH (09:19)
[2020-08-18 11:37] VITALS: BP 107/56
[2020-08-18] MEDS: LOSARTAN/HYDROCHLOROTHIAZIDE 50-12.5MG TABLET PO SCH (13:56)
[2020-08-18 16:18] VITALS: BP 123/59
[2020-08-18 20:00] VITALS: BP 98/44
[2020-08-19] VITALS (7 sets, daily range): BP systolic 94–128; BP diastolic 44–65
[2020-08-19] MEDS: HYDROMORPHONE 1 MG/1 ML AMP IVP PRN ×3 (03:21→22:27)
[2020-08-19 05:01] LABS: BASOPHILS % (AUTO) 0.2 % (0.0-5.0); EOSINOPHILS % (AUTO) 0.6 % (0.0-8.0); HEMATOCRIT 27.8 % (36-48); LYMPHOCYTES % (AUTO) 13.5 % (21.0-51.0); MEAN CORPUSCULAR HEMOGLOBIN 35.7 pg (27.0-33.0); MEAN CORPUSCULAR HGB CONC 34.5 g/dL (32.0-36.0); MEAN CORPUSCULAR VOLUME 103.3 fL (79-99); MONOCYTES % (AUTO) 9.7 % (3.0-13.0); NEUTROPHILS % (AUTO) 75.4 % (40.0-77.0); PLATELET COUNT (AUTO) 174 K/uL (130-400); RED BLOOD CELL COUNT(AUTO) 2.69 MIL/uL (4.00-5.50); RED CELL DISTRIBUTION WIDTH 14.6 % (11.0-15.5); WHITE BLOOD COUNT (AUTO) 5.1 K/uL (4.8-10.8)
[2020-08-19 05:17] LABS: CREATININE 1.1 mg/dL (0.5-1.5); POTASSIUM 3.5 mmol/L (3.5-5.1)
[2020-08-19] MEDS: INSULIN HUMULIN R 100 UNIT/ML 3ML SQ SCH ×4 (05:27→21:14)
[2020-08-19] MEDS: ZOSYN 3.375GM+NS 50ML 50 ML IV SCH ×3 (05:27→21:11)
[2020-08-19] MEDS: ATENOLOL 50 MG TABLET PO SCH (09:00)
[2020-08-19] MEDS: LOSARTAN/HYDROCHLOROTHIAZIDE 50-12.5MG TABLET PO SCH (09:00)
[2020-08-19] MEDS: METOCLOPRAMIDE 10 MG/2 ML VIAL IVP SCH ×2 (10:00→21:12)
[2020-08-19] MEDS: POTASSIUM CHLORIDE 20 MEQ ERTAB PO SCH (10:03)
[2020-08-19] MEDS: ATORVASTATIN CALCIUM 10 MG TABLET PO SCH ×2 (10:04→21:12)
[2020-08-20 03:56] VITALS: BP 97/53
[2020-08-20] MEDS: ZOSYN 3.375GM+NS 50ML 50 ML IV SCH ×3 (04:26→20:11)
[2020-08-20 05:55] LABS: BASOPHILS % (AUTO) 0.4 % (0.0-5.0); EOSINOPHILS % (AUTO) 1.2 % (0.0-8.0); HEMATOCRIT 28.7 % (36-48); LYMPHOCYTES % (AUTO) 15.2 % (21.0-51.0); MEAN CORPUSCULAR HEMOGLOBIN 34.2 pg (27.0-33.0); MEAN CORPUSCULAR HGB CONC 33.8 g/dL (32.0-36.0); MEAN CORPUSCULAR VOLUME 101.1 fL (79-99); MONOCYTES % (AUTO) 14.2 % (3.0-13.0); PLATELET COUNT (AUTO) 202 K/uL (130-400); RED BLOOD CELL COUNT(AUTO) 2.84 MIL/uL (4.00-5.50); RED CELL DISTRIBUTION WIDTH 14.4 % (11.0-15.5); WHITE BLOOD COUNT (AUTO) 5.1 K/uL (4.8-10.8)
[2020-08-20] MEDS: INSULIN HUMULIN R 100 UNIT/ML 3ML SQ SCH ×4 (06:13→21:04)
[2020-08-20 06:20] LABS: ALBUMIN 2.2 g/dL (3.5-5.0); BILIRUBIN,TOTAL 0.5 mg/dL (0.2-1.0); CREATININE 1.1 mg/dL (0.5-1.5); MAGNESIUM 1.5 mg/dL (1.80-2.40); TOTAL PROTEIN, SERUM 6.6 g/dL (6.0-8.3)
[2020-08-20] MEDS: KETOROLAC TROMETHAMINE 15MG/ML IV PRN ×3 (06:53→23:36)
[2020-08-20] MEDS: POTASSIUM CHLORIDE 20 MEQ ERTAB PO SCH (07:00)
[2020-08-20 08:33] VITALS: BP 132/70
[2020-08-20] MEDS: ATENOLOL 50 MG TABLET PO SCH (08:38)
[2020-08-20] MEDS: LOSARTAN/HYDROCHLOROTHIAZIDE 50-12.5MG TABLET PO SCH (08:39)
[2020-08-20] MEDS: METOCLOPRAMIDE 10 MG/2 ML VIAL IVP SCH ×2 (08:43→20:12)
[2020-08-20] MEDS: POTASSIUM CHLORIDE 20MEQ/100ML 100 ML IV PRN (08:50)
[2020-08-20] MEDS: HYDROMORPHONE 1 MG/1 ML AMP IVP PRN (09:45)
[2020-08-20 11:26] VITALS: BP 117/59
[2020-08-20] MEDS ORDERED: HEPARIN SODIUM 5000UNIT/ML 1ML VIAL SQ SCH (11:30)
[2020-08-20] MEDS: HEPARIN SODIUM 5000UNIT/ML 1ML VIAL SQ SCH (15:00)
[2020-08-20 16:09] VITALS: BP 97/56
[2020-08-20] MEDS ORDERED: MAG HYDROX/AL HYDROX/SIMETH ES 30 ML SUSP UDCUP ONE (20:03)
[2020-08-20] MEDS ORDERED: MAG HYDROX/AL HYDROX/SIMETH ES 30 ML SUSP UDCUP PO PRN (20:15)
[2020-08-20 20:35] VITALS: BP 158/47
[2020-08-20 23:17] VITALS: BP 109/66
[2020-08-21] MEDS ORDERED: TEMAZEPAM 7.5 MG CAPSULE PO ONE ×2 (00:42→00:45)
[2020-08-21] MEDS: HEPARIN SODIUM 5000UNIT/ML 1ML VIAL SQ SCH (02:53)
[2020-08-21] MEDS: ZOSYN 3.375GM+NS 50ML 50 ML IV SCH (04:24)
[2020-08-21 04:31] VITALS: BP 124/59
[2020-08-21] MEDS: KETOROLAC TROMETHAMINE 15MG/ML IV PRN ×2 (06:06→20:04)
[2020-08-21] MEDS: INSULIN HUMULIN R 100 UNIT/ML 3ML SQ SCH ×4 (06:41→21:00)
[2020-08-21 07:19] LABS: BASOPHILS % (AUTO) 0.4 % (0.0-5.0); EOSINOPHILS % (AUTO) 0.5 % (0.0-8.0); HEMATOCRIT 30.3 % (36-48); LYMPHOCYTES % (AUTO) 14.8 % (21.0-51.0); MEAN CORPUSCULAR HEMOGLOBIN 35.6 pg (27.0-33.0); MEAN CORPUSCULAR VOLUME 101.7 fL (79-99); MONOCYTES % (AUTO) 13.3 % (3.0-13.0); NEUTROPHILS % (AUTO) 69.7 % (40.0-77.0); PLATELET COUNT (AUTO) 219 K/uL (130-400); RED BLOOD CELL COUNT(AUTO) 2.98 MIL/uL (4.00-5.50); RED CELL DISTRIBUTION WIDTH 14.4 % (11.0-15.5); WHITE BLOOD COUNT (AUTO) 5.6 K/uL (4.8-10.8)
[2020-08-21 07:21] LABS: CREATININE 1.1 mg/dL (0.5-1.5); POTASSIUM 3.6 mmol/L (3.5-5.1)
[2020-08-21] MEDS ORDERED: RIVAROXABAN 20 MG TABLET PO SCH (08:15)
[2020-08-21] MEDS: ATENOLOL 50 MG TABLET PO SCH (09:57)
[2020-08-21] MEDS: POTASSIUM CHLORIDE 20 MEQ ERTAB PO SCH (09:57)
[2020-08-21] MEDS: ATORVASTATIN CALCIUM 10 MG TABLET PO SCH (09:58)
[2020-08-21] MEDS: LOSARTAN/HYDROCHLOROTHIAZIDE 50-12.5MG TABLET PO SCH (09:58)
[2020-08-21] MEDS: METOCLOPRAMIDE 10 MG/2 ML VIAL IVP SCH ×2 (09:59→20:04)
[2020-08-21 10:01] VITALS: BP 160/73
[2020-08-21 11:34] VITALS: BP 124/64
[2020-08-21] MEDS: MORPHINE SULFATE 15 MG TABLET.SA PO PRN (13:21)
[2020-08-21] MEDS: RIVAROXABAN 20 MG TABLET PO SCH (14:00)
[2020-08-21 17:58] VITALS: BP 132/57
[2020-08-21] MEDS: DEXTROSE 5%-LACTATED RINGERS 1,000 ML IV SCH (18:31)
[2020-08-21 20:29] VITALS: BP 105/55
[2020-08-22 00:55] VITALS: BP 98/52
[2020-08-22] MEDS: MORPHINE SULFATE 15 MG TABLET.SA PO PRN ×2 (01:07→20:43)
[2020-08-22 04:30] VITALS: BP 126/57
[2020-08-22 05:38] LABS: BASOPHILS % (AUTO) 0.4 % (0.0-5.0); EOSINOPHILS % (AUTO) 1.3 % (0.0-8.0); HEMATOCRIT 27.3 % (36-48); LYMPHOCYTES % (AUTO) 23.8 % (21.0-51.0); MEAN CORPUSCULAR HEMOGLOBIN 35.6 pg (27.0-33.0); MEAN CORPUSCULAR HGB CONC 34.1 g/dL (32.0-36.0); MEAN CORPUSCULAR VOLUME 104.6 fL (79-99); MONOCYTES % (AUTO) 16.3 % (3.0-13.0); NEUTROPHILS % (AUTO) 56.9 % (40.0-77.0); PLATELET COUNT (AUTO) 265 K/uL (130-400); RED BLOOD CELL COUNT(AUTO) 2.61 MIL/uL (4.00-5.50); RED CELL DISTRIBUTION WIDTH 14.5 % (11.0-15.5); WHITE BLOOD COUNT (AUTO) 5.6 K/uL (4.8-10.8)
[2020-08-22 05:58] LABS: POTASSIUM 3.3 mmol/L (3.5-5.1)
[2020-08-22] MEDS: INSULIN HUMULIN R 100 UNIT/ML 3ML SQ SCH ×4 (06:32→20:51)
[2020-08-22] MEDS: POTASSIUM CHLORIDE 20MEQ/100ML 100 ML IV PRN (06:32)
[2020-08-22] MEDS: ATENOLOL 50 MG TABLET PO SCH (09:00)
[2020-08-22] MEDS: LOSARTAN/HYDROCHLOROTHIAZIDE 50-12.5MG TABLET PO SCH (09:00)
[2020-08-22] MEDS ORDERED: ERGOCALCIFEROL (VITAMIN D2) 50,000 UNIT CAPSULE PO SCH (09:00)
[2020-08-22] MEDS: METOCLOPRAMIDE 10 MG/2 ML VIAL IVP SCH ×2 (09:47→20:41)
[2020-08-22] MEDS: POTASSIUM CHLORIDE 20 MEQ ERTAB PO SCH (09:47)
[2020-08-22] MEDS: ATORVASTATIN CALCIUM 10 MG TABLET PO SCH (09:48)
[2020-08-22] MEDS: RIVAROXABAN 20 MG TABLET PO SCH (09:48)
[2020-08-22 12:59] VITALS: BP 107/57
[2020-08-22] MEDS ORDERED: POTASSIUM CHLORIDE 20 MEQ ERTAB PO PRN (16:15)
[2020-08-22] MEDS ORDERED: POTASSIUM CHLORIDE 20MEQ/100ML 100 ML IV PRN ×2 (16:15)
[2020-08-22] MEDS ORDERED: POTASSIUM CHLORIDE 10% ELIXIR 20 MEQ/15 ML UDCUP PO PRN (16:15)
[2020-08-22 17:51] VITALS: BP 125/53
[2020-08-22 20:02] VITALS: BP 109/56
[2020-08-22] MEDS: DEXTROSE 5%-LACTATED RINGERS 1,000 ML IV SCH (20:41)
[2020-08-23 00:37] VITALS: BP 127/62
[2020-08-23 04:05] VITALS: BP 115/55
[2020-08-23] MEDS ORDERED: KETOROLAC TROMETHAMINE 15MG/ML ONE (04:43)
[2020-08-23] MEDS ORDERED: KETOROLAC TROMETHAMINE 30MG/ML IV PRN (04:45)
[2020-08-23] MEDS ORDERED: HYDROMORPHONE 1 MG/1 ML AMP IVP PRN (04:45)
[2020-08-23 05:49] LABS: BASOPHILS % (AUTO) 0.8 % (0.0-5.0); EOSINOPHILS % (AUTO) 0.8 % (0.0-8.0); HEMATOCRIT 26.9 % (36-48); LYMPHOCYTES % (AUTO) 18.3 % (21.0-51.0); MEAN CORPUSCULAR HEMOGLOBIN 34.5 pg (27.0-33.0); MEAN CORPUSCULAR HGB CONC 34.2 g/dL (32.0-36.0); MEAN CORPUSCULAR VOLUME 100.7 fL (79-99); MONOCYTES % (AUTO) 14.5 % (3.0-13.0); NEUTROPHILS % (AUTO) 63.5 % (40.0-77.0); PLATELET COUNT (AUTO) 328 K/uL (130-400); RED BLOOD CELL COUNT(AUTO) 2.67 MIL/uL (4.00-5.50); RED CELL DISTRIBUTION WIDTH 14.2 % (11.0-15.5); WHITE BLOOD COUNT (AUTO) 6.6 K/uL (4.8-10.8)
[2020-08-23] MEDS: INSULIN HUMULIN R 100 UNIT/ML 3ML SQ SCH ×2 (05:52→11:30)
[2020-08-23 05:57] LABS: POTASSIUM 3.5 mmol/L (3.5-5.1)
[2020-08-23 07:00] VITALS: BP 142/55
[2020-08-23] MEDS: METOCLOPRAMIDE 10 MG/2 ML VIAL IVP SCH ×2 (09:00→10:03)
[2020-08-23] MEDS: ATORVASTATIN CALCIUM 10 MG TABLET PO SCH (10:04)
[2020-08-23] MEDS: POTASSIUM CHLORIDE 20 MEQ ERTAB PO SCH (10:05)
[2020-08-23] MEDS: RIVAROXABAN 20 MG TABLET PO SCH (10:06)
[2020-08-23] MEDS: LOSARTAN/HYDROCHLOROTHIAZIDE 50-12.5MG TABLET PO SCH (10:06)
[2020-08-23] MEDS: ATENOLOL 50 MG TABLET PO SCH (10:08)
[2020-08-23 11:30] VITALS: BP 115/53
== END 2020-08-23 17:30 | disposition home or self-care (01) | DRG 418 ==
LOC: EDH 08:28 → EDHIP 14:43 → OBSVTOIN 14:43 → 4DH 08-15 16:02 → UNDODISIN 08-17 16:18 → 3CH 08-19 06:39 → 3DH 08-19 07:43
PROVIDERS: ADMIT Internal Medicine; ATTEND Internal Medicine
PROC: 0WQF4ZZ Repair Abdominal Wall, Percutaneous Endoscopic Approach (ICD-10-PCS; 2020-08-16)
PROC: 0FT44ZZ Resection of Gallbladder, Percutaneous Endoscopic Approach (ICD-10-PCS; principal; 2020-08-16 10:33)
DX: K80.00 Calculus of gallbladder with acute cholecystitis without obstruction (principal); K57.92 Diverticulitis of intestine, part unspecified, without perforation or abscess without bleeding; C79.9 Secondary malignant neoplasm of unspecified site; E66.01 Morbid (severe) obesity due to excess calories; E11.9 Type 2 diabetes mellitus without complications; D64.9 Anemia, unspecified; I10 Essential (primary) hypertension; E78.2 Mixed hyperlipidemia; Z68.35 Body mass index [BMI] 35.0-35.9, adult; Z86.718 Personal history of other venous thrombosis and embolism; C50.919 Malignant neoplasm of unspecified site of unspecified female breast; G89.4 Chronic pain syndrome; K42.9 Umbilical hernia without obstruction or gangrene; K82.8 Other specified diseases of gallbladder; Z79.01 Long term (current) use of anticoagulants; R53.81 Other malaise; Z82.3 Family history of stroke; G89.3 Neoplasm related pain (acute) (chronic); Z60.2 Problems related to living alone; R62.7 Adult failure to thrive; Z92.21 Personal history of antineoplastic chemotherapy
CPT/HCPCS: 36415; 73562; 74176; 80048; 80053; 81001; 82150; 82948; 83036; 83690; 83735; 83880; 84484; 85025; 93005; 93970; 97039; G0378; J0330; J1170; J1644; J1815; J1885; J2001; J2175; J2370; J2405; J2543; J2704; J2710; J2765; J3475; J3480; J3490; J7030; J7050; J7120

== ENCOUNTER 2021-04-24 10:36 | Emergency (ER) | payer MEDICARE ==
[~2021-04-24] VITALS: Ht 160 cm; Wt 90.7 kg
[~2021-04-24 10:36] MED LIST changes: -AMLO-257 PO; -ASPI-556 PO; -CEFD300C3 PO; -CLON0.3T PO; -DIAZ2TAB3 PO; -GLYB1TAB32 PO; -HYDR-4154 PO; -HYDR25TA PO; +LACT10SO76 PO; +LETR2.5T7 PO; +LOSA1TAB37 PO; -LOSA50TA64 PO; +MORP-108 PO; +PALB125C PO; +POTA-79 PO; +RIVA20TA PO; -TYL3 PO; +VITAD50000 PO; -diclofenac gel TP
[2021-04-24] MEDS ORDERED: KETOROLAC 15MG/ML VIAL (15MG/ML) IM SCH (11:30)
[2021-04-24 12:22] LABS: APPEARANCE,URINE Cloudy (CLEAR); BILIRUBIN,URINE Negative (NEGATIVE); COLOR,URINE Yellow (YELLOW); GLUCOSE, URINE (UA) TRACE mg/dL (NEGATIVE); KETONES,URINE Negative (NEGATIVE); LEUKOCYTE ESTERASE ,URINE Small (NEGATIVE); NITRATE,URINE Negative (NEGATIVE); OCCULT BLOOD,URINE Trace (NEGATIVE); PH,URINE 6.5 (5.0-8.0); PROTEIN,URINE POS 2+ mg/dL (NEGATIVE)
[2021-04-24 12:26] VITALS: BP 130/68
[2021-04-24 12:28] LABS: BASOPHILS % (AUTO) 0.6 % (0.0-5.0); EOSINOPHILS % (AUTO) 0.3 % (0.0-8.0); LYMPHOCYTES % (AUTO) 11.8 % (21.0-51.0); MEAN CORPUSCULAR HEMOGLOBIN 35.8 pg (27.0-33.0); MEAN CORPUSCULAR HGB CONC 35.6 g/dL (32.0-36.0); MEAN CORPUSCULAR VOLUME 100.6 fL (79-99); MONOCYTES % (AUTO) 5.7 % (3.0-13.0); NEUTROPHILS % (AUTO) 81.3 % (40.0-77.0); PLATELET COUNT (AUTO) 210 K/uL (130-400); RED BLOOD CELL COUNT(AUTO) 3.18 MIL/uL (4.00-5.50); RED CELL DISTRIBUTION WIDTH 13.5 % (11.0-15.5); WHITE BLOOD COUNT (AUTO) 6.7 K/uL (4.8-10.8)
[2021-04-24 12:37] LABS: CREATININE 1.3 mg/dL (0.5-1.5); POTASSIUM 3.3 mmol/L (3.5-5.1)
[2021-04-24 12:41] LABS: ALBUMIN 3.9 g/dL (3.5-5.0); BILIRUBIN,TOTAL 0.5 mg/dL (0.2-1.0); TOTAL PROTEIN, SERUM 7.9 g/dL (6.0-8.3)
[2021-04-24 12:47] LABS: BACTERIA,URINE Few /HPF (None Seen); RBC,URINE 0-1 /HPF (0-1); SQUAMOUS EPITHELIAL CELL,UR 0-2 /HPF (0-2)
[2021-04-24] MEDS ORDERED: NAPR-1180 PO (15:07)
[2021-04-24] MEDS ORDERED: DICL20GE TP (15:09)
== END 2021-04-24 15:45 | disposition home or self-care (01) ==
LOC: EDH 10:36
DX: M54.6 Pain in thoracic spine (principal); E11.9 Type 2 diabetes mellitus without complications; E78.00 Pure hypercholesterolemia, unspecified; I10 Essential (primary) hypertension; Z79.1 Long term (current) use of non-steroidal anti-inflammatories (NSAID); Z79.4 Long term (current) use of insulin; Z79.899 Other long term (current) drug therapy; Z85.3 Personal history of malignant neoplasm of breast; Z90.49 Acquired absence of other specified parts of digestive tract
CPT/HCPCS: 36415; 71045; 80053; 81001; 83690; 84484 ×2; 85025; 87088; 93005; 96372; 99285; J1885